=== PATIENT | male | born 1975 | race Caucasian/White ===

== ENCOUNTER 2017-07-29 15:17 | Emergency (ER) | payer MEDICAID ==
--- NOTE | 2017-07-29 17:09 | EDM.PDOC ---
ED HPI GENERAL MEDICAL PROBLEM - General Chief Complaint: Chest Pain Stated Complaint: CHEST PAIN Time Seen by Provider: 07/29/17 15:40 Source of Information: Reports: Patient, Family History Limitations: Reports: No Limitations - History of Present Illness INITIAL COMMENTS - FREE TEXT/NARRATIVE: 41-year-old male whose been having some intermittent left-sided chest discomfort off-and-on for the past several weeks, seems to be related to certain activity but also seems to be related to stress. He can make it worse by sitting up from a lying position. No shortness of breath or diaphoresis. He does have a significant family history of heart disease. Today he was cleaning and started to feel the pressure and was finally convinced that he needed to come in and be checked. No cough, fever, recent trauma, abdominal pain or chronic medical problems. Onset: Unknown/Unsure Quality: Reports: Ache, Dull, Pressure Severity: Moderate Worsens with: Reports: Other (Any type distress, also sitting forward from a supine position) Associated Symptoms: Reports: No Other Symptoms Anterior Chest Pain Score (Numeric/FACES): 3 - Related Data Allergies Allergy/AdvReac Type Severity Reaction Status Date / Time acetaminophen [From Vicodin] Allergy Rash Verified 07/29/17 15:24 codeine Allergy Rash Verified 07/29/17 15:24 hydrocodone [From Vicodin] Allergy Rash Verified 07/29/17 15:24 Home Meds: Home Meds Levothyroxine Sodium [Levoxyl] 225 mg PO DAILY 07/29/17 [History] Past Medical History HEENT History: Reports: Impaired Vision Gastrointestinal History: Reports: GERD Psychiatric History: Reports: Anxiety Endocrine/Metabolic History: Reports: Hypothyroidism - Infectious Disease History Infectious Disease History: Reports: Chicken Pox - Past Surgical History GI Surgical History: Reports: Appendectomy Musculoskeletal Surgical History: Reports: Arthroscopic Procedure, Shoulder Surgery Social & Family History - Tobacco Use Smoking Status *Q: Current Some Day Smoker Years of Tobacco use: 20 Packs/Tins Daily: 0.2 Used Tobacco, but Quit: No Second Hand Smoke Exposure: Yes - Caffeine Use Caffeine Use: Reports: Energy Drinks - Alcohol Use Days Per Week of Alcohol Use: 2 Number of Drinks Per Day: 2 Total Drinks Per Week: 4 - Recreational Drug Use Recreational Drug Use: No ED ROS GENERAL - Review of Systems Review Of Systems: See Below Constitutional: Denies: Fever, Chills Respiratory: Denies: Shortness of Breath Cardiovascular: Reports: Chest Pain. Denies: Palpitations GI/Abdominal: Denies: Abdominal Pain, Nausea, Vomiting Skin: Reports: No Symptoms Neurological: Reports: No Symptoms Psychiatric: Reports: No Symptoms ED EXAM, GENERAL - Physical Exam Exam: See Below Exam Limited By: No Limitations General Appearance: Alert, No Apparent Distress Head: Atraumatic Neck: Normal Inspection Respiratory/Chest: No Respiratory Distress, Lungs Clear. No: Chest Non-Tender ( I was able to produce some left anterior chest discomfort and reproduce it with forcing him to sit against resistance) Cardiovascular: Regular Rate, Rhythm. No: Bradycardia, Tachycardia, Extra Beats GI/Abdominal: Soft, Non-Tender Extremities: Normal Inspection. No: Pedal Edema Neurological: Alert, Oriented, Sensory/Motor Deficit Psychiatric: Normal Mood Skin Exam: Warm, Dry EKG INTERPRETATION Rhythm: NSR Course - Vital Signs Last Recorded V/S: Last Vital Signs Temp 97.3 F 07/29/17 15:36 Pulse 86 07/29/17 17:15 Resp 13 07/29/17 17:15 BP 132/90 07/29/17 17:15 Pulse Ox 95 07/29/17 17:15 - Orders/Labs/Meds Orders: Active Orders 24 hr Category Date Time Status EKG Documentation Completion [RC] ASDIRECTED Care 07/29/17 15:56 Active Chest 2V [CR] Routine Exams 07/29/17 15:56 Taken EKG 12 Lead [EK] Routine Ther 07/29/17 15:56 Ordered Labs: Laboratory Tests 07/29/17 07/29/17 Range/Units 16:11 16:11 WBC 9.2 (4.5-11.0) K/uL RBC 5.31 (4.30-5.90) M/uL Hgb 15.8 H (12.0-15.0) g/dL Hct 45.5 (40.0-54.0) % MCV 86 (80-98) fL MCH 30 (27-31) pg MCHC 35 (32-36) % Plt Count 383 (150-400) K/uL Neut % (Auto) 59 (36-66) % Lymph % (Auto) 32 (24-44) % Traverse % (Auto) 7 H (2-6) % Eos % (Auto) 2 (2-4) % Baso % (Auto) 0 (0-1) % Sodium 142 (140-148) mmol/L Potassium 4.1 (3.6-5.2) mmol/L Chloride 105 (100-108) mmol/L Carbon Dioxide 24 (21-32) mmol/L Anion Gap 12.7 (5.0-14.0) mmol/L BUN 17 (7-18) mg/dL Creatinine 1.1 (0.8-1.3) mg/dL Est Cr Clr Drug Dosing 93.17 mL/min Estimated GFR (MDRD) > 60 (>60) Glucose 90 (74-106) mg/dL Calcium 9.2 (8.5-10.1) mg/dL Troponin I < 0.017 (0.000-0.056) ng/mL - Re-Assessments/Exams Free Text/Narrative Re-Assessment/Exam: 07/29/17 17:07 EKG was done which was normal. Two-view chest x-ray was normal. CBC, BMP and troponin were all reassuring, normal. I do think with this patient's family history a stress test is reasonable, but no admission or acute treatment is needed at this time. I felt he should reestablish his care with his primary physician, and we made an appointment to see Juventino Yates tomorrow at 1:00 so he can discuss future studies or to stress testing. He'll return to the emergency room if worsening. 07/29/17 17:09 Departure - Departure Time of Disposition: 17:30 Disposition: Home, Self-Care 01 Condition: Good Clinical Impression: Atypical chest pain - Discharge Information Instructions: Nonspecific Chest Pain, [id number] Referrals: PCP,None [Primary Care Provider] - Forms: ED Department Discharge Care Plan Goals: Activity as tolerated, return if chest pain recurs and is persistent, especially if accompanied by shortness of breath and radiation to the arm or neck. See your primary provider tomorrow at 1:00 as scheduled. - My Orders Last 24 Hours: My Active Orders 07/29/17 15:56 EKG Documentation Completion [RC] ASDIRECTED Chest 2V [CR] Routine EKG 12 Lead [EK] Routine - Assessment/Plan Last 24 Hours: My Active Orders 07/29/17 15:56 EKG Documentation Completion [RC] ASDIRECTED Chest 2V [CR] Routine EKG 12 Lead [EK] Routine
--- NOTE | 2017-07-30 09:19 | CR ---
Chest 2V HISTORY: Dyspnea. COMPARISON: None FINDINGS: Cardiac size and pulmonary vessels normal. There are no infiltrates or effusions. No pneumo thorax. The osseous structures appear normal. IMPRESSION: No acute pulmonary disease.
== END 2017-07-29 17:30 | disposition home or self-care (01) ==
LOC: JP.ED 15:17
DX: R07.89 Other chest pain (principal); E03.9 Hypothyroidism, unspecified; F17.210 Nicotine dependence, cigarettes, uncomplicated; Z88.5 Allergy status to narcotic agent; Z88.6 Allergy status to analgesic agent
CPT/HCPCS: 36415; 71046; 71046-26; 80048; 84484; 85025; 93005; 93010; 99284; 99285-25

== ENCOUNTER 2019-03-07 10:23 | Day surgery (SDC) | payer MEDICAID ==
[2019-03-07] MEDS ORDERED: Lactated Ringers 500 ML IV SCH (10:45)
[2019-03-07] MEDS ORDERED: Lidocaine 2% 20 ML MDV ONE (10:54)
[2019-03-07] MEDS ORDERED: Bupivacaine 0.5% 50 ML MDV ONE (10:54)
[2019-03-07] MEDS ORDERED: Bacitracin Oint 1 GM U/D Packet ONE (10:54)
[2019-03-07] MEDS ORDERED: Propofol 200 MG/20 ML SDV ONE ×2 (10:56→13:18)
[2019-03-07] MEDS ORDERED: fentaNYL 100 MCG/2 ML SDV ONE (10:56)
[2019-03-07] MEDS ORDERED: Midazolam 1 MG/ML 2 ML SDV ONE (10:57)
[2019-03-07] MEDS ORDERED: Lactated Ringers 1,000 ML IV ONE (11:18)
[2019-03-07] MEDS ORDERED: ceFAZolin 1 GM in Premix Bag 1 BAG IV ONE (11:45)
--- NOTE | 2019-03-07 15:06 | OR ---
DATE OF PROCEDURE: 03/07/2019 MICROGRAPHICS SERVICES SUPERVISOR: None. PREOPERATIVE DIAGNOSIS: Hallux rigidus, left foot. POSTOPERATIVE DIAGNOSIS: Hallux rigidus, left foot. PROCEDURE: Arthrodesis of the left first metatarsophalangeal joint. ANESTHESIA: Local with IV sedation. HEMOSTASIS: Obtained with an ankle tourniquet on the left ankle at 250 mmHg. ESTIMATED BLOOD LOSS: 5 mL. MATERIALS: One Arthrex locking plate was used with 1 Arthrex 3.0 mm cannulated screw, 1 Arthrex 3.0 mm cortical screw, and 4 Arthrex 3.0 mm locking screws were used. INJECTABLES: 17 mL of Marcaine 0.5% plain were injected at the beginning of the procedure and 10 mL of Marcaine 0.5% plain were injected at the end of the procedure. PATHOLOGY: None. CONDITION: Stable. INDICATIONS: Painful hallux rigidus, left foot, that was unresponsive to conservative measures. PROCEDURE IN DETAIL: The patient was brought into the operating room and placed on the operating table in supine position. Following IV sedation, anesthesia was obtained with 17 mL of Marcaine 0.5% plain. The left foot was anesthetized with 17 mL of Marcaine 0.5% plain. Then, the left foot was scrubbed, prepped, and draped in the usual aseptic manner and raised to 60 degrees for hemostasis and exsanguinated using an Esmarch bandage. The tourniquet was inflated. Foot was lowered to the table. Skin incision was made on the dorsomedial aspect of left 1st metatarsophalangeal joint. Incisions were deepened through subcutaneous tissues with care taken to identify and retract all vital neurovascular structures. Following subcutaneous dissection, a T-type incision was made into the 1st metatarsophalangeal joint. Capsule was carefully dissected off the 1st metatarsal head and the base of the proximal phalanx. Sagittal saw was used to remove the bone spurs from the dorsomedial aspect of the 1st metatarsal head. Then, the private tutor was used to debride the head of the 1st metatarsal and remove the rest of the bone spurs from the dorsal and medial aspects and also plantar aspect of the 1st metatarsal head. Then, the bone fragments were removed with a rongeur. The rongeur was also used to remove hypertrophic bone spurs from the base of the proximal phalanx. Then, a K-wire was inserted into the 1st metatarsal head and the 22-mm reamer was used to ream the 1st metatarsal head and then the K-wire was removed and placed in the proximal phalanx and the 20-mm reamer was used in the proximal phalanx. Then, the 0.62 K-wire was used to fenestrate the 1st metatarsal head and the base of the proximal phalanx. The fusion site of the 1st metatarsophalangeal joint on the left foot was then reduced anatomically and provisionally fixated with pinballs and the plate. A small stab incision was made on the medial aspect of the left great toe, on the medial side of the proximal phalanx. The K-wire from the 3.0 mm cannulated screw set was placed across the arthrodesis site and then the position of the toe was confirmed both visually and fluoroscopically and found to be anatomic. So, then the hole around the K-wire was drilled and then the screw was placed. However, before the screw captured, we removed the distal pinball to facilitate compression at the arthrodesis site. The compression screw was then placed. Then, the 2 distal locking screws were placed in the proximal phalanx. Then, the eccentrically-loaded screw was placed in the eccentric drill hole. It was a cortical screw. Then, the remaining 2 locking screws were placed. The position of the 1st metatarsal was checked and found to be anatomic and then it was confirmed fluoroscopically and found to be anatomic. Then, the incision was flushed out with copious amounts of sterile saline. The joint capsule was closed with 3-0 Vicryl, the subcutaneous layer was closed with 3-0 Vicryl, and then skin was closed with 4-0 nylon in a horizontal mattress configuration with 1 simple stitch at the end of the incision and 1 simple stitch on the medial side of the foot, where the compression screw had been placed. Postoperative injection of 10 mL of Marcaine 0.5% plain was injected and then the left foot was dressed with Xeroform, 4x4s, Kerlix, and Coban. The patient was returned to the recovery room with vital signs stable and vascular status intact to both feet. The patient was given prescriptions for Toradol 10 mg q.6h x4 days, dispensed #24; also with tramadol 50 mg, one tab q.6h x10 days, dispensed #40; and also Vistaril 25 mg, one tab p.o. q.8h, dispensed #40. The patient was given instructions to rest, ice, and elevate the left foot, maintain strict nonweightbearing on the left foot and to go to the emergency room immediately if he has any nausea, vomiting, fever, chills, chest pain, calf pain, or difficulty breathing. The patient was agreeable. The patient is to ambulate with knee scooter and was told to keep dressings clean, dry, and intact. Cuate Davis DPM /[id number]
== END 2019-03-07 15:26 | disposition home or self-care (01) ==
LOC: JP.SDS 10:23
PROVIDERS: ATTEND Podiatrist Foot & Ankle Surgery
DX: M20.22 Hallux rigidus, left foot (principal); K21.9 Gastro-esophageal reflux disease without esophagitis; E78.5 Hyperlipidemia, unspecified; E03.9 Hypothyroidism, unspecified; F17.210 Nicotine dependence, cigarettes, uncomplicated; R73.9 Hyperglycemia, unspecified; Z88.5 Allergy status to narcotic agent; Z79.899 Other long term (current) drug therapy
CPT/HCPCS: 28291; 76000; C1713; C1776; J0690; J2001; J2250; J2704; J3010; J3490; J7120

== ENCOUNTER 2020-03-27 06:41 | Day surgery (SDC) | payer MEDICAID ==
[2020-03-27] MEDS ORDERED: Propofol 200 MG/20 ML SDV ONE (06:57)
[2020-03-27] MEDS ORDERED: Midazolam 1 MG/ML 2 ML SDV ONE (06:57)
[2020-03-27] MEDS ORDERED: fentaNYL 100 MCG/2 ML SDV ONE (06:57)
[2020-03-27] MEDS ORDERED: Dextrose 5%-Lactated Ringers 1,000 ML IV SCH (07:30)
[2020-03-27] MEDS ORDERED: Glycopyrrolate 0.2 MG/ML 2 ML SDV IVPUSH ONE (07:45)
--- NOTE | 2020-04-04 15:26 | OR ---
DATE OF PROCEDURE: 03/27/2020 SURGEON: Abdoulaye Car MD PREOPERATIVE DIAGNOSIS: Gastroesophageal reflux disease refractory to medical management. POSTOPERATIVE DIAGNOSES: 1. Gastroesophageal reflux disease refractory to medical management. 2. Patchy antral gastritis. OPERATIVE PROCEDURE: Esophagogastroduodenoscopy with: 1. Biopsies of esophagogastric junction for histologic evaluation. 2. Biopsies of antrum for CLOtest. ANESTHESIA: IV sedation. INDICATION FOR PROCEDURE: A 44-year-old male presenting with gastroesophageal reflux disease that has become refractory to medical management. He has ongoing heartburn and some bilious regurgitation despite proton pump inhibitor use. Plan is to proceed with upper GI endoscopy with biopsies as indicated. Potential risks including bleeding and perforation were discussed, and the patient wishes to proceed. DETAILS OF PROCEDURE: The patient was taken to the operating room and placed in a left lateral decubitus position. IV sedation was administered, after which the upper GI endoscope was passed orally through the length of the esophagus into the stomach with retroflexion view of the fundus, and thereafter through the pyloric channel and into the junction of the 3rd and 4th portions of the duodenum. Findings included some redness in the hypopharynx and larynx. The upper esophageal sphincter and esophageal body were unremarkable. The patient did have small hiatal hernia, but completely wide open esophagogastric junction with some active redness and friability of the distal esophageal mucosa. There was slightly upward extension of the gastroesophageal junction mucosal line consistent with possible [place] esophagus. Otherwise, there was no plaquing or stricturing or suggestion of neoplastic changes. Within the stomach, there was some patchy redness in the antrum. Otherwise, pyloric channel and visualized portion of the duodenum were unremarkable. At this point, biopsies were obtained from the antrum and sent for CLOtest for H pylori. Multiple biopsies were then obtained from esophagogastric junction and sent for histologic evaluation. Minimal bleeding from the biopsy sites was seen and the procedure was then concluded. The patient was taken to the recovery room in satisfactory condition. The plan will be to see the patient tomorrow Clinic to discuss this issue as well as his which he at this point desires to have removed for definitive diagnosis. Abdoulaye Car MD /[id number]
== END 2020-03-27 09:03 | disposition home or self-care (01) ==
LOC: JP.SDS 06:41
PROVIDERS: ATTEND Surgery
DX: K29.00 Acute gastritis without bleeding (principal); K29.50 Unspecified chronic gastritis without bleeding; K20.9 Esophagitis, unspecified; K31.89 Other diseases of stomach and duodenum; F17.200 Nicotine dependence, unspecified, uncomplicated
CPT/HCPCS: 43239; 87081; 88305; J2250; J2704; J3010; J3490; J7121

== ENCOUNTER 2020-04-17 08:51 | Inpatient (IN) | payer MEDICAID ==
[2020-04-17] MEDS ORDERED: Acetaminophen 500 MG Tab PO ONE (09:00)
[2020-04-17] MEDS ORDERED: Dextrose 5%-Lactated Ringers 1,000 ML IV SCH (09:30)
[2020-04-17] MEDS ORDERED: fentaNYL 250 MCG/5 ML SDV ONE (10:20)
[2020-04-17] MEDS ORDERED: Rocuronium 50 MG/5 ML Vial ONE (10:21)
[2020-04-17] MEDS ORDERED: Succinylcholine 200 MG/10 ML MDV ONE (10:21)
[2020-04-17] MEDS ORDERED: ceFAZolin 2 GM in Premix Bag 1 BAG IV ONE (10:21)
[2020-04-17] MEDS ORDERED: Dexamethasone 4 MG/ML SDV ONE (10:21)
[2020-04-17] MEDS ORDERED: Glycopyrrolate 0.2 MG/ML 5 ML MDV ONE (10:21)
[2020-04-17] MEDS ORDERED: Neostigmine Methylsulfate 1 MG/ML 5 ML Syringe ONE (10:21)
[2020-04-17] MEDS ORDERED: Ondansetron 4 MG/2 ML SDV ONE (10:21)
[2020-04-17] MEDS ORDERED: Propofol 200 MG/20 ML SDV ONE (10:21)
[2020-04-17] MEDS ORDERED: Ketamine 50 MG in Sodium Chloride 0.9% 49.5 ML IV SCH (11:30)
[2020-04-17] MEDS ORDERED: Ketamine 500 MG/5 ML MDV IV SCH (11:30)
[2020-04-17] MEDS ORDERED: fentaNYL 100 MCG/2 ML SDV ONE (11:36)
[2020-04-17] MEDS ORDERED: HYDROmorphone 2 MG Tab PO PRN (13:12)
[2020-04-17] MEDS ORDERED: Loratadine 10 MG Tab PO PRN (13:16)
[2020-04-17] MEDS ORDERED: Pseudoephedrine 30 MG Tab PO PRN (13:16)
[2020-04-17] MEDS ORDERED: HYDROmorphone 0.5 MG/0.5 ML Syringe IVPUSH PRN (14:00)
[2020-04-17] MEDS: Metoclopramide 10 MG/2 ML SDV IVPUSH SCH ×2 (14:05→19:26)
[2020-04-17] MEDS: Pantoprazole 40 MG Vial IVPUSH SCH (14:06)
[2020-04-17] MEDS: Dextrose 5%-Lactated Ringers 1,000 ML IV SCH ×2 (14:11→21:14)
[2020-04-17] MEDS: Acetaminophen 500 MG Tab PO SCH ×2 (15:47→21:10)
[2020-04-17] MEDS: ceFAZolin 2 GM in Premix Bag 1 BAG IV SCH (18:02)
[2020-04-17] MEDS: Rosuvastatin 10 MG Tab PO SCH (21:10)
[2020-04-18] MEDS: ceFAZolin 2 GM in Premix Bag 1 BAG IV SCH ×2 (01:15→09:36)
[2020-04-18] MEDS: Metoclopramide 10 MG/2 ML SDV IVPUSH SCH ×4 (01:16→19:54)
[2020-04-18] MEDS: Ondansetron 4 MG/2 ML SDV IVPUSH PRN ×2 (02:01→09:15)
[2020-04-18] MEDS: Acetaminophen 500 MG Tab PO SCH ×4 (04:21→23:02)
[2020-04-18] MEDS: Dextrose 5%-Lactated Ringers 1,000 ML IV SCH ×2 (04:22→11:35)
[2020-04-18] MEDS ORDERED: Ondansetron 4 MG Tab.DIS PO PRN (06:50)
--- NOTE | 2020-04-18 08:39 | PN ---
DATE OF SERVICE: 04/18/2020 SUBJECTIVE: Sami is postop day 1. Pain is controlled with Tylenol. He has had some episodes of nausea treated with Zofran. Vital signs have been stable. Oral intake 540. Urine output 1100. REVIEW OF SYSTEMS: Remainder of review of systems negative for any pertinent positives and negatives. OBJECTIVE: GENERAL: Sami Daugherty is a 44-year-old male. He is resting comfortably in bed. VITAL SIGNS: TPR at 0400: 97.7, 107, 18. Blood pressure 146/90. HEENT: Negative. NECK: Supple. HEART: Regular rate and rhythm. LUNGS: Clear. ABDOMEN: Dressings dry and intact. Abdominal binder is on. EXTREMITIES: Without peripheral edema. ASSESSMENT: Laparoscopic Eduardo fundoplication with repair of paraesophageal hernia with mesh and excision of mediastinal lipoma. POSTOPERATIVE DIAGNOSES: 1. 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 2. Mediastinal lipoma. Date of surgery: 04/17/2020. Surgeon: Abdoulaye Car MD. PLAN: 1. Dressing off, may shower. 2. Consult dietitian. 3. Full liquid diet. 4. Decrease IV to 100 mL per hour. 5. Zofran ODT 4 mg every 4 hours p.r.n. nausea. Mary Treadwell PA-C /[id number]
[2020-04-18] MEDS ORDERED: valACYclovir 1,000 MG Tab PO SCH (09:00)
[2020-04-18] MEDS: Pantoprazole 40 MG Vial IVPUSH SCH (13:29)
[2020-04-18] MEDS: HYDROmorphone 1 MG/ML Syringe IV PRN (19:53)
[2020-04-18] MEDS: Rosuvastatin 10 MG Tab PO SCH (20:52)
[2020-04-19] MEDS: HYDROmorphone 1 MG/ML Syringe IV PRN (02:28)
[2020-04-19] MEDS: Dextrose 5%-Lactated Ringers 1,000 ML IV SCH (02:33)
[2020-04-19] MEDS: Metoclopramide 10 MG/2 ML SDV IVPUSH SCH ×2 (02:42→07:09)
[2020-04-19] MEDS: Acetaminophen 500 MG Tab PO SCH (04:59)
--- NOTE | 2020-04-19 08:45 | DISCH ---
ADMISSION DIAGNOSES: Gastroesophageal reflux disease refractory to medical management, hiatal hernia, hypothyroidism, dyslipidemia, hyperglycemia, right lung nodule. DISCHARGE DIAGNOSES: Laparoscopic Eduardo fundoplication with repair of paraesophageal hernia with mesh and excision of mediastinal lipoma. POSTOPERATIVE DIAGNOSES: 1. 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 2. Mediastinal lipoma. 3. Date of surgery: 04/17/2020. Surgeon: Abdoulaye Car MD. HISTORY: Sami Daugherty is a 44-year-old male with history of hiatal hernia and gastroesophageal reflux disease refractory to medical management. After preoperative evaluation and discussion of possible risks and possible complications, he wished to proceed with surgical procedure. HOSPITAL COURSE: Sami had his surgery on 04/17/2020. He had no operative complications. On postoperative day #1, he was started on a full liquid diet. He received dietary instruction. He did have episodes of nausea and dry heaving he states from taking Dilaudid on an empty stomach. His vital signs remained stable. His oral intake was 400 that was recorded. Urine output not recorded. He states he voided independently. Denies any difficulties swallowing. Sami was stable to be discharged to home on 04/19/2020. PHYSICAL EXAMINATION: GENERAL: Sami is a 44-year-old male. VITAL SIGNS: Height is 5 feet 11 inches, weight is 206 pounds. TPR at 07:08 is 99.1; 115; 16; blood pressure 146/76. HEENT: Negative. NECK: Supple. HEART: Regular rate and rhythm. LUNGS: Clear. ABDOMEN: Sutures intact. Incision is healing well. Abdominal binder is on. EXTREMITIES: Without peripheral edema. DISPOSITION: Discharged to home. CONDITION: Stable and improving. FOLLOWUP APPOINTMENT: Abdoulaye Car MD, at [facility] on 05/02/2020 at 8:30 a.m. NEW PRESCRIPTION: 1. Celebrex 200 mg b.i.d., #28. 2. Dilaudid 2 mg q.6 hours p.r.n. pain, #28, take with food. 3. Tylenol Extra Strength 1000 mg oral q.6 hours, #40. 4. Zofran ODT 4 mg every 4 hours p.r.n. nausea. 5. To resume home medications and he may take them intact. a. Levothyroxine 225 mcg oral daily. b. AllerClear-D 24-Hour ER 1 tablet daily p.r.n. allergies. c. Omeprazole 20 mg oral daily for heartburn. d. Crestor 20 mg oral daily. e. Valtrex 500 mg oral daily. DIET: Full liquid diet for 2 weeks. Drink 8 to 10 glasses of water a day. ACTIVITY: No lifting over 10 pounds for 2 weeks. Other activity: Walk at least 6 times inside your house. Driving: Do not drive for 1 week. Shower/bathing: May shower. DISCHARGE INSTRUCTIONS: Notify provider if any fever, increased pain, swelling, redness, drainage, nausea, or vomiting. Wound incision care: Keep site clean and dry. Wear abdominal binder for 2 weeks and then as tolerated. SPECIAL INSTRUCTION: Use incentive spirometer 10 times every hour while awake for 1 week.
--- NOTE | 2020-04-23 16:38 | OR ---
DATE OF PROCEDURE: 04/17/2020 SURGEON: Abdoulaye Car MD PREOPERATIVE DIAGNOSIS: Gastroesophageal reflux disease refractory to medical management. POSTOPERATIVE DIAGNOSES: 1. Gastroesophageal reflux disease refractory to medical management associated with a large paraesophageal diaphragmatic hernia. 2. Mediastinal lipoma. OPERATIVE PROCEDURE: 1. Laparoscopic Eduardo fundoplication with repair of paraesophageal diaphragmatic hernia with mesh (11316). 2. Excision of mediastinal lipoma (92361). ANESTHESIA: General. EBD TEACHER: Mary Treadwell PA-C. INDICATION FOR PROCEDURE: This is a 44-year-old male presenting with progressive worsening gastroesophageal disease that has been refractory to medical management. After preop evaluation and discussion, he wished to proceed with a Eduardo fundoplication. Potential risks of the procedure including bleeding, infection, injury to the viscera in the area, problems with fundoplication such as dysphagia, gas-bloat syndrome, disorders of gastric emptying rate, as well as incomplete relief of reflux symptoms were reviewed, and the patient wishes to proceed. DETAILS OF PROCEDURE: The patient was taken to the operating room, and after general endotracheal anesthesia was induced, he was placed in a lithotomy position and the abdomen prepped and draped. At 15 cm inferior and 5 cm left of the xiphoid process, a transverse incision was made and peritoneal cavity entered under direct vision with an Optiview trocar, inflated to 15 mmHg pressure with CO2. Laparoscope was then reinserted. No underlying trocar insertion site injuries were seen. Following this, 4 additional trocars were placed across the upper and mid abdomen. Bilateral transverse abdominis plane blocks were then placed. The liver was retracted anteriorly. The patient was noted to have a fairly large paraesophageal diaphragmatic hernia with prolapse of some omentum, as well as the gastric fundus and perigastric fat, in a plane anterior to the course of the esophagus. The hernia was reduced at this point and the peritoneum overlying it divided and reflected downward. The peritoneum between the distal esophagus and right cande was then divided as well with Harmonic scalpel and this allowed gradual dissection of the esophagus, and a retroesophageal window was constructed. The soft tissue attachments of the esophagus were then gradually dissected free with Harmonic scalpel, such that there was roughly 5 cm intraabdominal esophageal length at that point. During the course of the dissection, a mediastinal lipoma was encountered, and this was excised so as to facilitate more adequate crural repair. The crural repair was accomplished with a series of 0 Ethibond sutures reinforced with PTFE pledgets. The size of the crural defect appeared to require mesh augmentation. A Phasix ST mesh was selected and cut in a small horseshoe-type configuration, such that it would lie over the crural repair and then slightly over the crura on each side, where it was tacked with some titanium tacking screws. The stomach was then freed up with division of the omentum away from the greater curvature of the stomach, beginning on the mid greater curvature. This was continued with the Harmonic Scalpel up to and through the short gastric vessels and highest and posterior short gastric vessels. This resulted in a nicely mobile fundus. The latter was then retrieved through the retroesophageal window. The railroad surveyor then placed a wire orally through the length of the esophagus into the stomach. Over this, a 54-Lao Savary dilator was positioned. A 2 cm 3-stitch fundoplication was constructed with 0 Ethibond sutures reinforced with PTFE pledgets. Each of these sutures included bites of the underlying esophagus. The fundoplication was then tacked up to the diaphragm on each side with the same stitch/ pledget combination to facilitate maintenance of the fundoplication over the level of the esophagus. At this point, the dilator and wire were removed, and the fundoplication was inspected and found to be satisfactorily floppy. At this point, the trocars were removed and the peritoneal cavity deflated. Incisions were closed with 4-0 Vicryl skin stitch, and the patient was taken to the recovery room in satisfactory condition. Physician child and youth program assistant, Mary Treadwell, played an essential role in assisting in this case, helping to position the patient, retract structures as needed, as well as suturing and cutting sutures when indicated. Her presence improved patient safety and decreased operative time. Abdoulaye Car MD /[id number]
== END 2020-04-19 09:30 | disposition home or self-care (01) | DRG 328 ==
LOC: JP.SDSSCHI 08:51 → JP.SDS 08:51 → JP.MS 12:30 → EDSTATUS 14:45
PROVIDERS: ADMIT Surgery; ATTEND Surgery
PROC: 0DV44ZZ Restriction of Esophagogastric Junction, Percutaneous Endoscopic Approach (ICD-10-PCS; principal; 2020-04-17)
PROC: 0BUT4JZ Supplement Diaphragm with Synthetic Substitute, Percutaneous Endoscopic Approach (ICD-10-PCS; 2020-04-17)
PROC: 0JB63ZZ Excision of Chest Subcutaneous Tissue and Fascia, Percutaneous Approach (ICD-10-PCS; 2020-04-17)
DX: K21.9 Gastro-esophageal reflux disease without esophagitis (principal); E03.9 Hypothyroidism, unspecified; K44.9 Diaphragmatic hernia without obstruction or gangrene; E78.5 Hyperlipidemia, unspecified; R91.1 Solitary pulmonary nodule; D17.1 Benign lipomatous neoplasm of skin and subcutaneous tissue of trunk; R73.9 Hyperglycemia, unspecified; Z79.899 Other long term (current) drug therapy; Z90.49 Acquired absence of other specified parts of digestive tract; Z88.8 Allergy status to other drugs, medicaments and biological substances
CPT/HCPCS: 36415; 80053; 83735; 84100; 84443; 85027; 88304; 94762; A9270-GY; C1713; C1781; C9113; J0171; J0330; J0690; J1100; J1170; J2405; J2704; J2710; J2765; J2795; J3010; J3490; J7050; J7121

== ENCOUNTER 2020-06-11 07:04 | Inpatient (IN) | payer MEDICAID ==
[~2020-06-11 07:04] MED LIST: Acetaminophen 500 MG Tab PO ONE; Albuterol 0.083% 2.5 MG/3 ML Neb Soln NEB ONE; Bupivacaine 0.5%/EPINEPHrine 1:200,000 50 ML MDV ONE
[2020-06-11] MEDS ORDERED: Ketamine 500 MG/5 ML MDV IV SCH (07:30)
[2020-06-11] MEDS ORDERED: Ketamine 50 MG in Sodium Chloride 0.9% 49.5 ML IV SCH (07:30)
[2020-06-11] MEDS ORDERED: Dexamethasone 4 MG/ML SDV ONE (08:44)
[2020-06-11] MEDS ORDERED: Glycopyrrolate 0.2 MG/ML 5 ML MDV ONE (08:44)
[2020-06-11] MEDS ORDERED: Rocuronium 50 MG/5 ML Vial ONE ×2 (08:44→11:12)
[2020-06-11] MEDS ORDERED: Succinylcholine 200 MG/10 ML MDV ONE (08:44)
[2020-06-11] MEDS ORDERED: Neostigmine Methylsulfate 1 MG/ML 5 ML Syringe ONE (08:44)
[2020-06-11] MEDS ORDERED: Ondansetron 4 MG/2 ML SDV ONE (08:44)
[2020-06-11] MEDS ORDERED: Propofol 200 MG/20 ML SDV ONE (08:44)
[2020-06-11] MEDS ORDERED: Dextrose 5%-Lactated Ringers 1,000 ML IV SCH (08:45)
[2020-06-11] MEDS ORDERED: Naloxone 0.4 MG/ML SDV IVPUSH PRN (09:00)
[2020-06-11] MEDS ORDERED: Midazolam 1 MG/ML 2 ML SDV ONE (09:03)
[2020-06-11] MEDS ORDERED: fentaNYL 100 MCG/2 ML SDV ONE ×2 (09:04→11:27)
[2020-06-11] MEDS ORDERED: Sodium Chloride 0.9% 10 ML ONE (09:04)
[2020-06-11] MEDS ORDERED: Lidocaine 1% 2 ML ONE (09:08)
[2020-06-11] MEDS ORDERED: Heparin Sodium 5,000 Units/ML Vial ONE (09:08)
[2020-06-11] MEDS ORDERED: Lidocaine 1% 20 ML MDV INJECT ONE (09:16)
[2020-06-11] MEDS ORDERED: ceFAZolin 2 GM in Premix Bag 1 BAG IV ONE (09:30)
[2020-06-11] MEDS ORDERED: Lactated Ringers 1,000 ML ONE ×2 (09:42→11:26)
[2020-06-11] MEDS ORDERED: fentaNYL 250 MCG/5 ML SDV ONE (09:54)
--- NOTE | 2020-06-11 10:20 | CT ---
HOOKWIRE LOCALIZATION RLL LUNG NODULE CLINICAL HISTORY: Lung nodule PROCEDURE: After informed consent the patient was placed on the CT table in prone position with a localization grid on the skin. Scans through the lower lung enciso show the previously described 6 mm nodule in the right lower lobe. Approach was selected and the skin was marked. Skin was then prepped and sterilely draped. 1% Xylocaine local anesthesia was instilled into the skin through the posterior soft tissues to the rib margin. 25-gauge needle was left in place while patient was rescanned to confirm needle path. A 22-gauge Kopan localization needle was then advanced under CT guidance to the rib margin. The angle was adjusted to pass through the intercostal space to the nodule. CT fluoroscopy was then used to advance the needle to the nodule. The localization wire was then advanced to 3 mm the on the needle tip and the needle was removed with wire left in place. Confirmation scan showed the tip of the wire to be within the nodule. There is minimal tenting of the posterior pleura without obvious pneumothorax or pleural fluid. Wire was secured at the skin. The patient was released to preop on a gurney. No common locations were encountered. IMPRESSION: Successful wire localization of a 6 mm right lower lobe pulmonary nodule
[2020-06-11] MEDS ORDERED: Naloxone 0.4 MG/ML SDV ONE (12:11)
[2020-06-11] MEDS ORDERED: fentaNYL 100 MCG/2 ML SDV IVPUSH ONE (12:42)
--- NOTE | 2020-06-11 13:22 | CR ---
CHEST: Portable 06/11/2020 at 12:23 PM CLINICAL HISTORY:Status postPost thoracoscopy and partial lung resection COMPARISON:CT 08/11/2019 FINDINGS: There is a right chest tube in place. There is a crescentic apical pneumothorax. This measures just over 2 cm. Left lung is clear. There is some patchy density in the right lower lobe. Impression: Status post right thoracoscopy Chest tube in place Small apical pneumothorax
[2020-06-11] MEDS: fentaNYL 2,500 MCG in Sodium Chloride 0.9% 200 ML EPIDUR SCH (14:02)
[2020-06-11] MEDS ORDERED: hydrOXYzine HCL 100 MG/2 ML SDV IM PRN (16:00)
[2020-06-11] MEDS: Acetaminophen 500 MG Tab PO SCH ×2 (16:27→21:34)
[2020-06-11] MEDS: Pantoprazole 40 MG Vial IVPUSH SCH (16:27)
[2020-06-11] MEDS: ceFAZolin 2 GM in Premix Bag 1 BAG IV SCH (18:05)
[2020-06-11] MEDS: Dextrose 5%-Lactated Ringers 1,000 ML IV SCH (22:08)
[2020-06-12] MEDS: ceFAZolin 2 GM in Premix Bag 1 BAG IV SCH ×3 (01:27→17:34)
[2020-06-12] MEDS: Ondansetron 4 MG/2 ML SDV IVPUSH PRN ×2 (04:29→08:39)
[2020-06-12] MEDS: Acetaminophen 500 MG Tab PO SCH ×4 (04:29→22:29)
[2020-06-12] MEDS: Dextrose 5%-Lactated Ringers 1,000 ML IV SCH (05:22)
[2020-06-12] MEDS: Magnesium Sulfate/Water 2 GM/50 ML BAG IV SCH ×3 (08:37→20:09)
[2020-06-12] MEDS: Dextrose 5%-Lactated Ringers 1,000 ML with Naloxone 0.4 MG IV SCH ×4 (08:48→20:08)
[2020-06-12] MEDS ORDERED: Naloxone 0.4 MG/ML SDV IV PRN (09:00)
[2020-06-12] MEDS ORDERED: diphenhydrAMINE 50 MG/ML SDV IVPUSH PRN (09:00)
--- NOTE | 2020-06-12 09:15 | CR ---
CHEST: Portable 1124 at 0439 AM CLINICAL HISTORY:Chest tube COMPARISON:06/11/2020 FINDINGS: There is a persistent small right apical pneumothorax similar to prior study. Right chest tube remains in place. There is some patchy density in the right infrahilar region. Left lung remains clear. IMPRESSION: Persistent small right apical pneumothorax Right chest tube remains in place Persistent the right infrahilar density. This may represent some subsegmental atelectasis. Some element of previous pulmonary hemorrhage is not excluded
[2020-06-12] MEDS: Docusate Sodium 100 MG Cap PO SCH ×2 (10:39→22:29)
[2020-06-12] MEDS: valACYclovir 1,000 MG Tab PO SCH (10:39)
[2020-06-12] MEDS: Rosuvastatin 10 MG Tab PO SCH ×3 (10:40→16:17)
[2020-06-12] MEDS: fentaNYL 2,500 MCG in Sodium Chloride 0.9% 200 ML EPIDUR SCH (10:50)
[2020-06-12] MEDS ORDERED: Lactated Ringers 500 ML IV ONE (14:00)
[2020-06-12] MEDS: Pantoprazole 40 MG Vial IVPUSH SCH (16:17)
[2020-06-13] MEDS: ceFAZolin 2 GM in Premix Bag 1 BAG IV SCH ×2 (02:14→09:38)
[2020-06-13] MEDS: Magnesium Sulfate/Water 2 GM/50 ML BAG IV SCH ×4 (02:14→19:49)
[2020-06-13] MEDS: Acetaminophen 500 MG Tab PO SCH ×4 (03:08→22:57)
[2020-06-13] MEDS: Dextrose 5%-Lactated Ringers 1,000 ML with Naloxone 0.4 MG IV SCH ×2 (06:42)
[2020-06-13] MEDS ORDERED: Naloxone 0.4 MG/ML SDV IV PRN (09:00)
[2020-06-13] MEDS: valACYclovir 1,000 MG Tab PO SCH (09:36)
[2020-06-13] MEDS: Ibuprofen 600 MG Tab PO SCH ×3 (09:37→21:31)
[2020-06-13] MEDS: Docusate Sodium 100 MG Cap PO SCH ×2 (09:37→21:31)
[2020-06-13] MEDS: Levothyroxine 100 MCG Tab PO SCH (09:37)
[2020-06-13] MEDS: Bisacodyl 5 MG Tab PO SCH ×2 (09:38→21:31)
--- NOTE | 2020-06-13 10:00 | CR ---
CHEST: Portable 06/13/2020 at 5:25 AM CLINICAL HISTORY:Status post partial right pneumonectomy COMPARISON:06/12/2020 FINDINGS: There is a persistent paucity of lung markings in the right apex. A pleural line is not definitively identified but the small residual pneumothorax is suspected. Right chest tube remains in place. IMPRESSION: Probable small residual pneumothorax
[2020-06-13] MEDS: Ondansetron 4 MG/2 ML SDV IVPUSH PRN ×2 (10:28→15:21)
[2020-06-13] MEDS ORDERED: Dextrose 5%-Lactated Ringers 1,000 ML IV SCH (11:00)
[2020-06-13] MEDS ORDERED: HYDROmorphone/Normal Saline 15 MG/30 ML PCA IV PRN (11:00)
--- NOTE | 2020-06-13 14:03 | PN ---
DATE OF SERVICE: 06/12/2020 The patient is status post a right superior segmentectomy of the lower lobe. 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 Overnight, the patient has done well. A little bit of nausea. Pain control with epidural appears to be fairly good. We will keep him on just some sips of clear liquids for today and the epidural in for another day or 2 and 175 mL. The chest x-ray looks good, and no air leaks were noted. He will be transferred to 2nd floor to get him away from the possible COVID exposure associated with ICU. Labs showed no significant problems. His magnesium is slightly low at 1.7. We will supplement that over the next 48 hours. Abdoulaye Car MD /[id number]
--- NOTE | 2020-06-13 15:03 | PN ---
DATE OF SERVICE: 06/13/2020 The patient has been afebrile with fairly stable vital signs and good urine output. 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 He tolerated the Dilaudid last time with Eduardo fundoplication. We will start some diet today. Alicia catheter will come out, and he hopefully likely will be moved up to the second floor further away from any COVID patients. Testing at this point has been quite mobile, maybe get that out tomorrow, and chest x-ray, otherwise, looks good. No air leaks are noted. Pathology still pending. Abdoulaye Car MD /[id number]
[2020-06-13] MEDS ORDERED: Pantoprazole 40 MG Delayed-Release Granules 1 Packet PO SCH (16:30)
[2020-06-13] MEDS ORDERED: Sodium Chloride 0.9% 1,000 ML IV SCH (16:45)
[2020-06-13] MEDS: Rosuvastatin 10 MG Tab PO SCH (16:53)
[2020-06-13] MEDS: Pantoprazole 40 MG Tab.CR PO SCH (16:53)
[2020-06-14] MEDS: Acetaminophen 500 MG Tab PO SCH ×4 (00:21→17:48)
[2020-06-14] MEDS: Magnesium Sulfate/Water 2 GM/50 ML BAG IV SCH (03:10)
[2020-06-14] MEDS: Ibuprofen 600 MG Tab PO SCH ×4 (03:21→22:52)
[2020-06-14] MEDS: Levothyroxine 100 MCG Tab PO SCH (08:53)
[2020-06-14] MEDS: valACYclovir 1,000 MG Tab PO SCH (08:53)
[2020-06-14] MEDS: Docusate Sodium 100 MG Cap PO SCH ×2 (08:53→20:00)
[2020-06-14] MEDS: Bisacodyl 5 MG Tab PO SCH ×2 (08:53→20:00)
--- NOTE | 2020-06-14 10:30 | CR ---
CHEST: Portable 06/14/2020 at 5:08 AM CLINICAL HISTORY:Previous right thoracoscopy COMPARISON:06/13/2020 FINDINGS: Right chest tube remains in place. No definite pneumothorax is identified on current exam. Heart and pulmonary vessel 30 are normal. There is some persistent patchy density in the right infrahilar region. IMPRESSION: Essential resolution of right pneumothorax Right chest tube remains in place Persistent right infrahilar airspace disease similar to prior study .
[2020-06-14] MEDS: HYDROmorphone 2 MG Tab PO PRN ×3 (10:36→19:46)
[2020-06-14] MEDS: Pantoprazole 40 MG Tab.CR PO SCH (16:00)
[2020-06-14] MEDS: Rosuvastatin 10 MG Tab PO SCH (17:48)
[2020-06-15] MEDS: Acetaminophen 500 MG Tab PO SCH ×4 (01:09→17:41)
[2020-06-15] MEDS: Ibuprofen 600 MG Tab PO SCH ×4 (03:35→21:29)
[2020-06-15] MEDS: HYDROmorphone 2 MG Tab PO PRN (05:16)
--- NOTE | 2020-06-15 09:08 | CR ---
CHEST: Portable 06/15/2020 at 4:56 AM CLINICAL HISTORY:Chest tube COMPARISON:06/14/2020 FINDINGS: Right chest tube remains in place. Prior right apical pneumothorax is resolved. There is some persistent patchy airspace disease in the right infrahilar region. There is some patchy density at the left lung base which is likely some subsegmental atelectasis. IMPRESSION: Right chest tube remains in place Resolution right pneumothorax Persistent right infrahilar airspace disease Patchy left basal airspace disease likely some subsegmental atelectasis
--- NOTE | 2020-06-15 09:09 | CR ---
CHEST: Portable 06/15/2020 at 7:19 AM CLINICAL HISTORY:Right chest tube removed COMPARISON:Earlier 06/15/2020 FINDINGS: Right chest tube is been removed. There is no pneumothorax. There is patchy airspace disease in the right infrahilar region similar to prior study. There is minimal patchy airspace disease in left lung base similar to prior study. IMPRESSION: Right chest tube is been removed No recurrence in pneumothorax
[2020-06-15] MEDS: Levothyroxine 100 MCG Tab PO SCH (09:48)
[2020-06-15] MEDS: Docusate Sodium 100 MG Cap PO SCH ×2 (09:48→21:28)
[2020-06-15] MEDS: Bisacodyl 5 MG Tab PO SCH ×2 (09:48→21:29)
[2020-06-15] MEDS: valACYclovir 1,000 MG Tab PO SCH (09:48)
[2020-06-15] MEDS: Rosuvastatin 10 MG Tab PO SCH (17:41)
[2020-06-15] MEDS: Pantoprazole 40 MG Tab.CR PO SCH (17:42)
[2020-06-16] MEDS: Acetaminophen 500 MG Tab PO SCH ×2 (00:37→06:49)
[2020-06-16] MEDS: Ibuprofen 600 MG Tab PO SCH ×2 (03:16→08:55)
--- NOTE | 2020-06-16 05:36 | CRLCR ---
INDICATION: Chest tube removal TECHNIQUE: Chest 2 views. COMPARISON: 06/15/2020 FINDINGS: Cardiovascular and mediastinum: Heart size and vasculature are normal in caliber and appearance. Mediastinum is within normal limits. Lungs and pleural spaces: Right midlung opacity increased compared to prior study. No sign of pleural effusion. No pneumothorax. Bones and soft tissues: No significant findings. IMPRESSION: Right midlung opacity increased compared to 06/15/2020. Dictated by Sami Mckeon MD @ Jun 16 2020 5:32AM Signed by Dr. Sami Mckeon @ Jun 16 2020 5:33AM
[2020-06-16] MEDS: Levothyroxine 100 MCG Tab PO SCH (08:55)
[2020-06-16] MEDS: valACYclovir 1,000 MG Tab PO SCH (08:55)
--- NOTE | 2020-06-16 09:06 | DISCH ---
ADMISSION DIAGNOSIS: Nodule, right lower lobe of lung. DISCHARGE DIAGNOSES: 1. Flexible bronchoscopy. 2. Right thoracoscopy with resection of superior segment of the right lower lobe for nodule segment in the right lower lobe (low-grade carcinoid tumor per frozen section). Date of procedure: 06/11/2020. Surgeon: Abdoulaye Car MD. HISTORY: Sami Daugherty is a 44-year-old male with a nodule noted on his right lower lobe of his lung. After preoperative evaluation, discussion of possible risks and possible complications, he wished to proceed with surgical procedure. HOSPITAL COURSE: Sami had his surgery on 06/11/2020. He had no operative complications. On postop day 1, pain was controlled. His oxygen levels remained within normal limits. He was up ambulating. The epidural catheter was removed on 06/13/2020. Started on a full liquid diet. Alicia catheter discontinued on 06/14/2020. Regular diet. He was able to shower. On 06/15, chest tube was removed. Chest x-ray day of discharge showed right midlung opacity increased compared to 06/15/2020. On 06/16/2020, he was able to be discharged to home. Pain was controlled with Tylenol and ibuprofen. Vital signs were stable. He did have a bowel movement. He was able to be discharged to home with no complications. PHYSICAL EXAMINATION: GENERAL: Sami Daugherty is a 44-year-old male. VITAL SIGNS: Height 5 feet 10.87 inches, weight is 204 pounds. TPR at 0300, 96.8, 76, 18, blood pressure 110/71. HEENT: Negative. NECK: Supple. HEART: Regular rate and rhythm. LUNGS: Clear. Right dressing remains intact. This will be removed prior to discharge. There remains to be some decreased breath sounds or crackling in the right mid lung, but good air exchange. EXTREMITIES: Without peripheral edema. DISPOSITION: Discharged to home. CONDITION: Stable and improving. FOLLOWUP APPOINTMENT: With Abdoulaye Car MD, on 06/20/2020 at 2:15 a.m. He is to come at 1:45 p.m. for chest x-ray PA and lateral. MEDICATIONS: Tylenol Extra Strength 1000 mg every 6 hours, ibuprofen 800 mg every 6 hours p.r.n. pain, Crestor 20 mg p.o. daily, Valtrex 500 mg p.o. daily, Zofran ODT 4 mg every 4 hours p.r.n. nausea, loratadine/pseudoephedrine 1 tablet daily p.r.n. congestion, levothyroxine 225 mcg p.o. daily. DIET: Regular diet as tolerated. Drink 8 to 10 glasses of water a day. ACTIVITY: No lifting greater than 10 pounds for 6 weeks. Walk at least 6 times inside your home. Driving: Do not drive for 1 week. May shower. Keep operative site clean and dry. Change dressing over chest tube site once daily. Notify provider if any fever, increased pain, drainage, nausea, or vomiting. SPECIAL INSTRUCTION: Use incentive spirometer 10 times every hour while awake for 1 week. /[id number]
--- NOTE | 2020-06-18 07:23 | PN ---
DATE OF SERVICE: 06/14/2020 The patient has been afebrile with stable vital signs. He is still having a little bit of issues with pain control even with PASTER OPERATOR going on today oral with scheduled Tylenol. The chest tube output was 250 mL, so we will for another day, but most likely we will get the chest tube out tomorrow. Otherwise, he is moving up to a regular diet. Abdoulaye Car MD /[id number]
--- NOTE | 2020-06-18 07:29 | PN ---
DATE OF SERVICE: 06/15/2020 The patient has been afebrile with stable vital signs. Pain control is still a little bit marginal, but we did pull the chest tube this morning and he had only around 125 mL out in the last 24 hours. Subsequent chest x-ray is pending repeat a chest x-ray tomorrow. If he continues to do well, we will let him be discharged home. We will address the pathology report and any need for additional operative procedure based on the final report when it becomes available. Otherwise, he will likely be discharged home tomorrow with followup with Dr. Car this coming June 20. Abdoulaye Car MD /[id number]
--- NOTE | 2020-06-24 10:46 | OR ---
DATE OF PROCEDURE: 06/11/2020 SURGEON: Abdoulaye Car MD PREOPERATIVE DIAGNOSIS: Right lower lobe mass. 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 OPERATIVE PROCEDURES: 1. Flexible bronchoscopy (47829). 2. Right thoracoscopy with resection of superior segment of right lower lobe (55715). ANESTHESIA: General plus epidural. JACK SETTER: Mary Treadwell PA-C INDICATIONS FOR PROCEDURE: This is a 44-year-old male presenting with a nodule involving the superior segment of the right lower lobe. His family history includes multiple occasions where nodules which were thought to be benign or appropriate to follow were subsequently found to be malignant. This is the situation we are looking at this point, and the patient wishes to proceed with resection of this, even though a standard decision-making might lead one to continue to follow this lesion. Potential risks of the procedure including bleeding, infection, injury to underlying viscera, possible local or distant recurrence of malignancy might be encountered were all gone over, and the patient wishes to proceed. DETAILS OF PROCEDURE: The patient was taken to the operating room and placed in a supine position. After general endotracheal anesthesia was induced, initially a flexible bronchoscope was passed through the endotracheal tube, and a general tracheobronchial examination was undertaken. There were no significant secretions and no additional masses or other pathology identified. Scope was withdrawn and that procedure was then concluded. A double-lumen endotracheal tube was then placed along with arterial line and a Alicia catheter, and the patient was placed in a left lateral decubitus position. In the mid axillary line, a transverse incision was made over the 10th interspace, and the left pleural space entered with an Optiview trocar, and pleural space was inflated to 7 mmHg pressure with CO2. Three additional trocars were then placed across the somewhat more superior chest wall. The patient had had a preoperative needle localization of the area overlying the lesion with the needle being placed more or less directly adjacent to the lesion where this needle had pulled back with development of the pneumothorax, but the point where the needle came into the lung was well identified as a small area of tear and some blood present, and this as expected was in the posterior aspect of the midportion of the superior segment of the right lower lobe. General examination revealed no left pleural fluid and there was no obvious lymphadenopathy or other pathology present. At this point, given the location of the mass, decision was made to proceed with superior segmentectomy of the lung tissue initially anteriorly and then posteriorly posterior to the hilum of the upper lobe was divided with MASSIEL margot. Dissection was then continued such that the grouping of the superior segmental bronchus artery and vein were all identified, and these were then divided with MASSIEL stapler as well, and a specimen was placed in a specimen bag and sent for frozen section examination. The 6 mm to 7 mm mass, which was seen on CT scan was easily palpable within the specimen and corresponded quite precisely with where one would expect it to be based on the preoperative needle localization and general appearance on the CAT scan. Frozen section was suggestive of a typical carcinoid, i.e., a low-grade carcinoid tumor with there being no mitotic figures seen on the frozen section slides that were examined intraoperatively. Given the small size of this and peripheral nature, we decided at this point to not proceed with further dissection knowing that the pathology report may change resulting in need for secondary operation. In a typical carcinoid, we typically would recommend a hilar mediastinal node sampling, but given the small size, quite low-grade appearance on frozen section, i.e., no mitotic figures and some uncertainty with regard to the final pathology, we opted at this point not to proceed with further dissection but wait for the permanent sections. At this point, no further problems were noted. A 36-Chinese right-angled chest tube was placed through the midaxillary line trocar site, and the remaining trocars were deflated as the lung was reinflated as well. No other leaks or other problems were noted. The chest tube was sutured to skin with some 2-0 Ethibond stitch. The fascia at the other 12 mm site was closed with 0 Vicryl stitch at the fascial level and the skin at each incision with 4-0 Vicryl skin stitch. Dressing was applied. The patient was taken to the recovery room in satisfactory condition. Physician assistant elementary teacher, Mary Treadwell PA-C, played an essential role in assisting in this case, helping to position the patient, retract structures as needed, as well as suturing and cutting sutures when indicated. Her presence improved patient safety and decreased operative time. Abdoulaye Car MD /[id number]
== END 2020-06-16 09:30 | disposition home or self-care (01) | DRG 165 ==
LOC: JP.SDSSCHI 07:04 → JP.SDS 07:04 → EDSTATUS 09:15 → JP.ICU 13:30 → JP.MS 06-13 21:48
PROVIDERS: ADMIT Surgery; ATTEND Surgery
PROC: 0BBF4ZZ Excision of Right Lower Lung Lobe, Percutaneous Endoscopic Approach (ICD-10-PCS; principal; 2020-06-11)
PROC: 0W9940Z Drainage of Right Pleural Cavity with Drainage Device, Percutaneous Endoscopic Approach (ICD-10-PCS; 2020-06-11)
PROC: 0BJ08ZZ Inspection of Tracheobronchial Tree, Via Natural or Artificial Opening Endoscopic (ICD-10-PCS; 2020-06-11)
DX: D3A.090 Benign carcinoid tumor of the bronchus and lung (principal); R73.9 Hyperglycemia, unspecified; E03.9 Hypothyroidism, unspecified; E78.5 Hyperlipidemia, unspecified; F17.200 Nicotine dependence, unspecified, uncomplicated; K21.9 Gastro-esophageal reflux disease without esophagitis; Z90.49 Acquired absence of other specified parts of digestive tract
CPT/HCPCS: 36415; 71045; 71045-26; 71046; 77012; 77012-26; 80048; 82803; 83735; 84100; 84443; 85027; 86850; 86900; 86901; 86920; 86922; 88307; 94060; 94640; 94762; A9270-GY; C9113; J0330; J0690; J1100; J1170; J1200; J1644; J2001; J2250; J2310; J2405; J2704; J2710; J3010; J3475; J3490; J7030; J7050; J7120; J7121

== ENCOUNTER 2021-04-01 07:10 | Day surgery (SDC) | payer MEDICAID ==
[~2021-04-01 07:10] MED LIST changes: -Acetaminophen 500 MG Tab PO ONE; -Albuterol 0.083% 2.5 MG/3 ML Neb Soln NEB ONE; +Bupivacaine 0.5% 30 ML SDV ONE; -Bupivacaine 0.5%/EPINEPHrine 1:200,000 50 ML MDV ONE; +Nozin Nasal Sanitizer NASBOTH ONE
[2021-04-01] MEDS ORDERED: Propofol 200 MG/20 ML SDV ONE (07:32)
[2021-04-01] MEDS ORDERED: Midazolam 1 MG/ML 2 ML SDV ONE (07:32)
[2021-04-01] MEDS ORDERED: fentaNYL 250 MCG/5 ML SDV ONE (07:33)
[2021-04-01] MEDS ORDERED: Dexamethasone 4 MG/ML SDV ONE (07:34)
[2021-04-01] MEDS ORDERED: Ondansetron 4 MG/2 ML SDV ONE (07:34)
[2021-04-01] MEDS ORDERED: Ketorolac 30 MG/ML SDV ONE (07:34)
[2021-04-01] MEDS ORDERED: Succinylcholine 200 MG/10 ML MDV ONE (07:45)
[2021-04-01] MEDS ORDERED: Lactated Ringers 1,000 ML IV SCH (07:45)
[2021-04-01] MEDS ORDERED: Rocuronium 50 MG/5 ML Vial ONE (07:45)
[2021-04-01] MEDS ORDERED: Nozin Nasal Sanitizer NASBOTH ONE (08:04)
[2021-04-01] MEDS ORDERED: ceFAZolin 2 GM in Premix Bag 1 BAG IV ONE (08:30)
[2021-04-01] MEDS ORDERED: fentaNYL 100 MCG/2 ML SDV ONE (08:38)
[2021-04-01] MEDS ORDERED: Bupivacaine 0.5% 30 ML SDV INJECT ONE ×2 (09:07→09:45)
[2021-04-01] MEDS ORDERED: Glycopyrrolate 0.2 MG/ML 5 ML MDV ONE (09:18)
[2021-04-01] MEDS ORDERED: Neostigmine Methylsulfate 1 MG/ML 5 ML Syringe ONE (09:18)
[2021-04-01] MEDS ORDERED: Lactated Ringers 1,000 ML ONE (09:19)
[2021-04-01] MEDS ORDERED: HYDROmorphone 2 MG Tab PO PRN (10:43)
--- NOTE | 2021-04-08 05:16 | OR ---
DATE OF PROCEDURE: 04/01/2021 SURGEON: Ricardo Broderick MD PREOPERATIVE DIAGNOSIS: Chondral defect, lateral femoral condyle, left knee. POSTOPERATIVE DIAGNOSES: 1. Full-thickness chondral defect, lateral femoral condyle, left knee, measuring 15 x 8 mm. 2. Grade 1 and 2 chondromalacia patella. PROCEDURES: 1. Diagnostic arthroscopy, left knee. 2. Open osteochondral autograft, mosaicplasty, left knee. SUSTAINABILITY PROJECT COORDINATOR: MELIDA Zendejas ANESTHESIA: General. INDICATION: This is a 45-year-old gentleman with a history of left knee pain with catching and locking. Examination and imaging are consistent with a full-thickness cartilage defect in lateral femoral condyle which appears well contained in approximately 10 mm in diameter. He thought to be a candidate for an osteochondral autografting and has taken to the operating room today for planned procedure. Risks, benefits, potential and complications of the procedure were discussed. Surgical 1st materials assistant services of [employer] were utilized for retraction, exposure, manipulation and positioning of the leg during implantation and harvesting of the grafts. DESCRIPTION OF PROCEDURE: After adequate anesthesia was obtained, the patient was placed in supine with a tourniquet about the left upper thigh. Left leg was prepped and draped in a sterile fashion. Leg was exsanguinated and tourniquet inflated to 300 mmHg pressure. Standard inferior medial lateral and portals were established. The scope was introduced and the patellofemoral joint was inspected. This revealed some grade 2 changes of the patella with intact trochlea. Medial femoral condyle showed loose chondral fragment which was removed with a shaver. Meniscus and articular surfaces were intact. ACL and PCL were intact. Lateral compartment showed a full-thickness cartilage defect with loose chondral flaps around the periphery. Several small loose bodies from this defect were present, which were removed with the shaver. The margins of the defect were debrided with a shaver and a curette. The defect was very well contained, did not have a circular shaped defect, but more of a snowman shape with a larger defect anterior and a smaller defect posteriorly. Spinal needle was utilized to estimate angle needed to obtain perpendicular position for drilling and implantation of grafts. This could not be easily obtained and required a difficult angle through the patellar tendon. A decision was made to proceed with an arthrotomy. Knee was drained. The scope withdrawn. Lateral portal was extended from the level to the tibial tuberosity to the superior pole of the patella. This carried down through the subcutaneous tissues, and a lateral parapatellar approach was utilized. This revealed the defect which was measured at approximately 8 mm in width at it's widest point and 15 mm in total length. The posterior portion was approximately 6 mm in width. The 8 mm drill was used to core the larger of the defect sites and the bone removed was saved for grafting of the harvest site. An 8 mm harvester was then utilized in the superior aspect of the trochlear groove off the main weightbearing area. This was harvested to a depth of 15 mm corresponding to the depth of the core in the defect. The graft was then maneuvered into position and tapped flush with the kashia cartilage. A 6 mm reamer was then used in the posterior defect again saving the bone reamings. 6 mm osteochondral graft was taken from the junction of the main weightbearing portion of the condyle and the trochlear groove. This was position and maneuvered into the defect and tapped flush. A 15 scalpel blade was used to lightly debride the overlapping edges to remove any chondral flaps. The harvested bone was placed into the larger of the harvest sites. The knee was irrigated and closed with 0 Vicryl in a running fashion and a capsule with 2-0 Vicryl and a running 3-0 Monocryl. Steri-Strips were applied. Sterile dressing was then placed. The patient tolerated the procedure well. There were no complications and taken from the operating room in stable condition. Ricardo Broderick MD /[id number] [place]
== END 2021-04-01 13:20 | disposition home or self-care (01) ==
LOC: JP.SDS 07:10
PROVIDERS: ATTEND Specialist
DX: M24.19 Other articular cartilage disorders, other specified site (principal); M22.42 Chondromalacia patellae, left knee; E03.9 Hypothyroidism, unspecified; F17.200 Nicotine dependence, unspecified, uncomplicated; Z88.5 Allergy status to narcotic agent; Z98.890 Other specified postprocedural states
CPT/HCPCS: 36415; 80053; 85025; A9270-GY; J0330; J0690; J1100; J1885; J2250; J2405; J2704; J2710; J3010; J3490; J7120

== ENCOUNTER 2021-08-19 08:52 | Day surgery (SDC) | payer MEDICAID ==
[2021-08-19] MEDS ORDERED: Nozin Nasal Sanitizer NASBOTH ONE (09:30)
[2021-08-19] MEDS ORDERED: Lactated Ringers 1,000 ML IV SCH (10:00)
[2021-08-19] MEDS ORDERED: fentaNYL 250 MCG/5 ML SDV ONE (10:09)
[2021-08-19] MEDS ORDERED: ceFAZolin 1 GM in Premix Bag 1 BAG IV ONE (10:30)
[2021-08-19] MEDS ORDERED: ceFAZolin 1 GM in Sodium Chloride 0.9% 50 ML IV ONE (10:30)
[2021-08-19] MEDS ORDERED: Bupivacaine 0.5% 50 ML MDV ONE (10:45)
[2021-08-19] MEDS ORDERED: Midazolam 1 MG/ML 2 ML SDV ONE (11:04)
[2021-08-19] MEDS ORDERED: Propofol 200 MG/20 ML SDV ONE ×2 (11:04→11:32)
[2021-08-19] MEDS ORDERED: Dexamethasone 4 MG/ML SDV ONE (11:04)
[2021-08-19] MEDS ORDERED: Ondansetron 4 MG/2 ML SDV ONE (11:04)
[2021-08-19] MEDS ORDERED: Ketorolac 30 MG/ML SDV ONE (12:11)
== END 2021-08-19 15:00 | disposition home or self-care (01) ==
LOC: JP.SDS 08:52
PROVIDERS: ATTEND Specialist
DX: M94.262 Chondromalacia, left knee (principal); E03.9 Hypothyroidism, unspecified; K21.9 Gastro-esophageal reflux disease without esophagitis; E78.00 Pure hypercholesterolemia, unspecified
CPT/HCPCS: 29879; 36415; 80048; 85027; A9270; J0690; J1100; J1885; J2250; J2405; J2704; J3010; J3490; J7120

== ENCOUNTER 2022-04-02 10:43 | Inpatient (IN) | payer MEDICAID ==
[2022-04-02] MEDS ORDERED: Acetaminophen 325 MG Tab PO PRN (11:11)
[2022-04-02] MEDS ORDERED: Ondansetron 4 MG/2 ML SDV IV PRN (11:11)
[2022-04-02] MEDS ORDERED: Sodium Chloride 0.9% 10 ML Syringe FLUSH PRN ×2 (11:11→11:31)
[2022-04-02] MEDS ORDERED: HYDROmorphone 0.5 MG/0.5 ML Syringe IVPUSH PRN (11:15)
[2022-04-02] MEDS ORDERED: Iopamidol 612 MG/ML 100 ML Bottle IV PRN (11:31)
[2022-04-02] MEDS ORDERED: Sodium Chloride 0.9% 50 ML IV ONE (11:31)
[2022-04-02 11:54] LABS: ESTIMATED GFR 83 mL/min (>60)
[2022-04-02] MEDS ORDERED: Loratadine 10 MG Tab PO PRN (12:54)
[2022-04-02] MEDS: Enoxaparin 40 MG/0.4 ML Syringe SUBCUT SCH (12:59)
[2022-04-02] MEDS: Pantoprazole 40 MG Vial IVPUSH SCH (12:59)
[2022-04-02] MEDS: Levothyroxine 25 MCG Tab PO SCH (14:54)
[2022-04-02] MEDS: Levothyroxine 100 MCG Tab PO SCH (14:55)
[2022-04-02] MEDS: valACYclovir 1,000 MG Tab PO SCH (14:55)
[2022-04-02] MEDS: HYDROmorphone 0.5 MG/0.5 ML Syringe IVPUSH PRN ×2 (17:18→20:45)
[2022-04-02] MEDS: Sodium Chloride 0.9% 1,000 ML IV SCH (20:48)
[2022-04-03] MEDS: Sodium Chloride 0.9% 1,000 ML IV SCH (04:55)
[2022-04-03 05:23] LABS: ESTIMATED GFR 93 mL/min (>60)
[2022-04-03] MEDS: Levothyroxine 100 MCG Tab PO SCH (08:54)
[2022-04-03] MEDS: valACYclovir 1,000 MG Tab PO SCH (08:54)
[2022-04-03] MEDS: Levothyroxine 25 MCG Tab PO SCH (08:54)
[2022-04-03] MEDS: Pantoprazole 40 MG Vial IVPUSH SCH (11:46)
[2022-04-03] MEDS: Docusate Sodium 100 MG Cap PO SCH ×2 (11:46→20:58)
[2022-04-03] MEDS: Enoxaparin 40 MG/0.4 ML Syringe SUBCUT SCH (11:46)
[2022-04-04 05:01] LABS: ESTIMATED GFR 93 mL/min (>60)
[2022-04-04] MEDS: Docusate Sodium 100 MG Cap PO SCH (08:06)
[2022-04-04] MEDS: valACYclovir 1,000 MG Tab PO SCH (08:10)
[2022-04-04] MEDS: Levothyroxine 25 MCG Tab PO SCH (08:11)
[2022-04-04] MEDS: Levothyroxine 100 MCG Tab PO SCH (08:11)
[2022-04-04] MEDS ORDERED: Pantoprazole 40 MG Tab.CR PO SCH (09:00)
== END 2022-04-04 11:00 | disposition home or self-care (01) | DRG 440 ==
LOC: JP.ICU 10:43
PROVIDERS: ADMIT Hospitalist; ATTEND Hospitalist
DX: K85.90 Acute pancreatitis without necrosis or infection, unspecified (principal); E86.0 Dehydration; E03.9 Hypothyroidism, unspecified; E78.00 Pure hypercholesterolemia, unspecified; F41.9 Anxiety disorder, unspecified; K21.9 Gastro-esophageal reflux disease without esophagitis; Z20.822 Contact with and (suspected) exposure to COVID-19; Z79.899 Other long term (current) drug therapy; Z79.890 Hormone replacement therapy; Z88.5 Allergy status to narcotic agent; Z88.6 Allergy status to analgesic agent; Z87.19 Personal history of other diseases of the digestive system; Z90.2 Acquired absence of lung [part of]; Z90.49 Acquired absence of other specified parts of digestive tract; Z98.52 Vasectomy status; Z90.89 Acquired absence of other organs; Z98.890 Other specified postprocedural states; Z85.118 Personal history of other malignant neoplasm of bronchus and lung
CPT/HCPCS: 36415; 74177; 74177-26; 76705; 76705-26; 80053; 83690; 85025; A9270-GY; C9113; J1170; J1650; J3490; J7030; Q9967; U0002

== ENCOUNTER 2022-05-21 05:26 | Inpatient (IN) | payer MEDICAID ==
[2022-05-21] MEDS ORDERED: Lactated Ringers 1,000 ML IV SCH (06:00)
[2022-05-21 06:13] LABS: ESTIMATED GFR 83 mL/min (>60)
[2022-05-21] MEDS: Nozin Nasal Sanitizer NASBOTH SCH ×3 (06:26→23:02)
[2022-05-21] MEDS ORDERED: Bupivacaine 0.5% 50 ML MDV ONE (06:48)
[2022-05-21] MEDS ORDERED: ceFAZolin 2 GM in Sodium Chloride 0.9% 50 ML IV ONE (07:00)
[2022-05-21] MEDS ORDERED: fentaNYL 100 MCG/2 ML SDV ONE ×2 (07:18→08:42)
[2022-05-21] MEDS ORDERED: Propofol 200 MG/20 ML SDV ONE ×4 (07:18→09:26)
[2022-05-21] MEDS ORDERED: Midazolam 1 MG/ML 2 ML SDV ONE (07:18)
[2022-05-21] MEDS ORDERED: Magnesium Hydroxide 400 MG/5 ML Susp 30 ML Cup PO PRN (10:06)
[2022-05-21] MEDS: Ketorolac 30 MG/ML SDV IVPUSH SCH ×2 (10:50→18:09)
[2022-05-21] MEDS: Acetaminophen 325 MG Tab PO SCH ×3 (10:51→23:01)
[2022-05-21] MEDS ORDERED: Loratadine 10 MG Tab PO PRN (11:12)
[2022-05-21] MEDS: HYDROmorphone 0.5 MG/0.5 ML Syringe IVPUSH PRN ×3 (12:21→20:53)
[2022-05-21] MEDS: Sodium Chloride 0.9% 1,000 ML IV SCH ×2 (12:28→20:47)
[2022-05-21] MEDS: HYDROmorphone 2 MG Tab PO PRN ×2 (13:57→23:02)
[2022-05-21] MEDS: traMADol 50 MG Tab PO PRN (14:43)
[2022-05-21] MEDS: ceFAZolin 1 GM in Sodium Chloride 0.9% 50 ML IV SCH ×2 (15:39→23:02)
[2022-05-21] MEDS: Docusate Sodium 100 MG Cap PO SCH (20:53)
[2022-05-22] MEDS: HYDROmorphone 0.5 MG/0.5 ML Syringe IVPUSH PRN ×2 (00:48→12:22)
[2022-05-22] MEDS: Ketorolac 30 MG/ML SDV IVPUSH SCH ×3 (02:35→18:01)
[2022-05-22] MEDS: traMADol 50 MG Tab PO PRN ×3 (02:35→20:08)
[2022-05-22] MEDS: Acetaminophen 325 MG Tab PO SCH ×4 (05:29→21:28)
[2022-05-22] MEDS: Docusate Sodium 100 MG Cap PO SCH ×2 (08:30→21:28)
[2022-05-22] MEDS: valACYclovir 1,000 MG Tab PO SCH (08:30)
[2022-05-22] MEDS: Nozin Nasal Sanitizer NASBOTH SCH ×3 (08:30→21:28)
[2022-05-22] MEDS ORDERED: LEVOTHYROXINE SODIUM 200 MCG PO SCH (09:00)
[2022-05-22] MEDS ORDERED: HYDROmorphone 1 MG/ML Syringe IVPUSH PRN (12:33)
[2022-05-22] MEDS: HYDROmorphone 2 MG Tab PO PRN ×2 (13:47→18:01)
[2022-05-23] MEDS: HYDROmorphone 2 MG Tab PO PRN ×4 (01:08→16:08)
[2022-05-23] MEDS: Ketorolac 30 MG/ML SDV IVPUSH SCH (02:11)
[2022-05-23] MEDS: Acetaminophen 325 MG Tab PO SCH ×3 (04:24→15:27)
[2022-05-23] MEDS: traMADol 50 MG Tab PO PRN ×3 (04:25→18:00)
[2022-05-23] MEDS: valACYclovir 1,000 MG Tab PO SCH (09:26)
[2022-05-23] MEDS: Docusate Sodium 100 MG Cap PO SCH (09:26)
[2022-05-23] MEDS: Nozin Nasal Sanitizer NASBOTH SCH (09:38)
== END 2022-05-23 20:20 | disposition home or self-care (01) | DRG 470 ==
LOC: JP.SDS 05:26 → JP.MS 10:07 → JP.SDS 05-22 11:00 → JP.MS 05-22 11:30
PROVIDERS: ADMIT Specialist; ATTEND Specialist
PROC: 0SRD0JZ Replacement of Left Knee Joint with Synthetic Substitute, Open Approach (ICD-10-PCS; principal; 2022-05-21)
DX: M17.12 Unilateral primary osteoarthritis, left knee (principal); M94.20 Chondromalacia, unspecified site
CPT/HCPCS: 36415; 73560-26-LT; 73560-LT; 80053; 85027; 97110-GP; 97112-GP; 97161-GP; 97165-GO; 97530-GP; 97535-GO; 97535-GP; A9270-GY; C1713; C1776; J0690; J1170; J1885; J2250; J2704; J3010; J3490; J7030; J7120

== ENCOUNTER 2022-05-26 09:02 | Emergency (ER) | payer MEDICAID | END 2022-05-26 12:17 | disposition home or self-care (01) | LOC: JP.ED 09:02 | DX: G89.18 Other acute postprocedural pain (principal); F17.210 Nicotine dependence, cigarettes, uncomplicated; Z91.048 Other nonmedicinal substance allergy status; Z88.5 Allergy status to narcotic agent; Z88.6 Allergy status to analgesic agent; Z79.899 Other long term (current) drug therapy | CPT/HCPCS: 93971-26-LT; 93971-LT; 99283 ==

== ENCOUNTER 2022-10-15 07:30 | Day surgery (SDC) | payer MEDICAID ==
[~2022-10-15 07:30] MED LIST changes: -Nozin Nasal Sanitizer NASBOTH ONE
[2022-10-15] MEDS ORDERED: Lactated Ringers 1,000 ML IV SCH (08:00)
[2022-10-15] MEDS ORDERED: Nozin Nasal Sanitizer NASBOTH ONE (08:00)
[2022-10-15 08:23] LABS: ESTIMATED GFR 83 mL/min (>60)
[2022-10-15] MEDS ORDERED: ceFAZolin 2 GM in Premix Bag 1 BAG IV ONE (09:00)
[2022-10-15] MEDS ORDERED: Midazolam 1 MG/ML 2 ML SDV ONE (11:51)
[2022-10-15] MEDS ORDERED: fentaNYL 250 MCG/5 ML SDV ONE (11:51)
[2022-10-15] MEDS ORDERED: Dexamethasone 4 MG/ML SDV ONE (11:52)
[2022-10-15] MEDS ORDERED: Propofol 200 MG/20 ML SDV ONE (11:52)
[2022-10-15] MEDS ORDERED: Ondansetron 4 MG/2 ML SDV ONE (11:52)
[2022-10-15] MEDS ORDERED: Ketorolac 30 MG/ML SDV ONE (12:12)
[2022-10-15] MEDS ORDERED: Lactated Ringers 1,000 ML ONE (12:39)
[2022-10-15] MEDS ORDERED: fentaNYL 100 MCG/2 ML SDV ONE (12:49)
[2022-10-15] MEDS ORDERED: traMADol 50 MG Tab PO PRN (13:45)
== END 2022-10-15 16:12 | disposition home or self-care (01) ==
LOC: JP.SDS 07:30
PROVIDERS: ATTEND Specialist
DX: Z12.11 Encounter for screening for malignant neoplasm of colon (principal); M65.162 Other infective (teno)synovitis, left knee; E03.9 Hypothyroidism, unspecified; E78.5 Hyperlipidemia, unspecified; R73.9 Hyperglycemia, unspecified; A60.00 Herpesviral infection of urogenital system, unspecified; K21.9 Gastro-esophageal reflux disease without esophagitis; F17.210 Nicotine dependence, cigarettes, uncomplicated
CPT/HCPCS: 29875; 36415; 80053; 85025; 85651; 86140; 87070; 87075; 87077; 87186; 87205; A9270; J0690; J1100; J1885; J2250; J2405; J2704; J3010; J3490; J7120

== ENCOUNTER 2022-10-15 20:54 | Emergency (ER) | payer MEDICAID ==
[2022-10-15] MEDS ORDERED: Lidocaine 1% 5 ML VIAL INJECT ONE (21:34)
== END 2022-10-15 22:16 | disposition home or self-care (01) ==
LOC: JP.ED 20:54
DX: L76.22 Postprocedural hemorrhage of skin and subcutaneous tissue following other procedure (principal); E78.00 Pure hypercholesterolemia, unspecified; E03.9 Hypothyroidism, unspecified; Z91.048 Other nonmedicinal substance allergy status; Z88.5 Allergy status to narcotic agent; Z79.899 Other long term (current) drug therapy; Z98.890 Other specified postprocedural states
CPT/HCPCS: 12001; 99283

== ENCOUNTER 2022-11-12 09:23 | Inpatient (IN) | payer MEDICAID ==
[2022-11-12] MEDS: Nozin Nasal Sanitizer NASBOTH SCH ×3 (09:46→21:38)
[2022-11-12 09:48] LABS: HEMATOCRIT 45.9 % (38.4-49.7); MEAN CORPUSCULAR HEMOGLOBIN 29.8 pg (31.6-35.5); MEAN CORPUSCULAR HGB CONC 32.7 g/dL (31.6-35.5); MEAN CORPUSCULAR VOLUME 91.3 fL (81.4-99.0); RED BLOOD CELL COUNT 5.03 M/uL (4.14-5.76); WHITE BLOOD CELL COUNT,WBC 8.5 K/uL (3.2-11.0)
[2022-11-12] MEDS ORDERED: Lactated Ringers 1,000 ML IV SCH (10:00)
[2022-11-12 10:06] LABS: C-REACTIVE PROTEIN 1.21 mg/dL (0.0-0.3); CALCIUM 8.7 mg/dL (8.5-10.1); CREATININE 1.2 mg/dL (0.8-1.3); EST CRCL DRUG DOSING (CG) 81.05 mL/min; POTASSIUM,K 4.2 mmol/L (3.6-5.2)
[2022-11-12] MEDS ORDERED: Tranexamic Acid 1,000 MG in Sodium Chloride 0.9% 50 ML IV ONE ×2 (11:00→15:00)
[2022-11-12] MEDS ORDERED: fentaNYL 100 MCG/2 ML SDV ONE ×4 (12:19→18:32)
[2022-11-12] MEDS ORDERED: Midazolam 1 MG/ML 2 ML SDV ONE ×3 (12:19→16:11)
[2022-11-12] MEDS ORDERED: Propofol 200 MG/20 ML SDV ONE ×5 (12:19→17:05)
[2022-11-12] MEDS ORDERED: Bupivacaine 0.5% 50 ML MDV ONE (13:38)
[2022-11-12] MEDS ORDERED: Glycopyrrolate 0.2 MG/ML 5 ML MDV ONE (15:50)
[2022-11-12] MEDS ORDERED: Lactated Ringers 1,000 ML ONE (17:21)
[2022-11-12] MEDS ORDERED: Ondansetron 4 MG/2 ML SDV IVPUSH PRN (18:15)
[2022-11-12] MEDS: Ketorolac 30 MG/ML SDV IVPUSH PRN (19:15)
[2022-11-12] MEDS: HYDROmorphone 1 MG/ML Syringe IVPUSH PRN ×2 (19:15→20:34)
[2022-11-12] MEDS: traMADol 50 MG Tab PO PRN ×2 (20:37→21:39)
[2022-11-12] MEDS: atorvaSTATin 20 MG Tab PO SCH (21:38)
[2022-11-12] MEDS: Acetaminophen 325 MG Tab PO SCH (23:40)
[2022-11-13] MEDS: HYDROmorphone 1 MG/ML Syringe IVPUSH PRN ×3 (02:15→13:45)
[2022-11-13] MEDS: Acetaminophen 325 MG Tab PO SCH ×5 (02:18→22:30)
[2022-11-13] MEDS: Levothyroxine 100 MCG Tab PO SCH (08:03)
[2022-11-13] MEDS: Loratadine 10 MG Tab PO SCH (08:03)
[2022-11-13] MEDS: Multivitamins with Iron/Calcium/Folic Acid/Minerals Tab PO SCH (08:03)
[2022-11-13] MEDS: Nozin Nasal Sanitizer NASBOTH SCH ×2 (08:03→21:27)
[2022-11-13] MEDS: Levothyroxine 25 MCG Tab PO SCH (08:03)
[2022-11-13] MEDS: Aspirin 325 MG Tab.EC PO SCH ×2 (08:03→21:29)
[2022-11-13] MEDS: Docusate Sodium 100 MG Cap PO SCH ×2 (08:03→21:29)
[2022-11-13] MEDS: valACYclovir 1,000 MG Tab PO SCH (08:04)
[2022-11-13] MEDS ORDERED: LEVOTHYROXINE SODIUM 200 MCG PO SCH (09:00)
[2022-11-13] MEDS: Sodium Chloride 0.9% 1,000 ML IV SCH (12:18)
[2022-11-13] MEDS: traMADol 50 MG Tab PO PRN (18:37)
[2022-11-13] MEDS: atorvaSTATin 20 MG Tab PO SCH (21:29)
[2022-11-13] MEDS: Ketorolac 30 MG/ML SDV IVPUSH PRN (23:44)
[2022-11-14] MEDS: Acetaminophen 325 MG Tab PO SCH ×5 (00:14→23:06)
[2022-11-14] MEDS: traMADol 50 MG Tab PO PRN ×3 (03:59→19:44)
[2022-11-14] MEDS: Levothyroxine 100 MCG Tab PO SCH (07:21)
[2022-11-14] MEDS: Levothyroxine 25 MCG Tab PO SCH (07:21)
[2022-11-14] MEDS: Nozin Nasal Sanitizer NASBOTH SCH ×2 (08:07→21:23)
[2022-11-14] MEDS: Aspirin 325 MG Tab.EC PO SCH ×2 (08:08→21:27)
[2022-11-14] MEDS: Multivitamins with Iron/Calcium/Folic Acid/Minerals Tab PO SCH (08:08)
[2022-11-14] MEDS: Loratadine 10 MG Tab PO SCH (08:08)
[2022-11-14] MEDS: Docusate Sodium 100 MG Cap PO SCH ×2 (08:08→21:26)
[2022-11-14] MEDS: valACYclovir 1,000 MG Tab PO SCH (08:09)
[2022-11-14] MEDS ORDERED: HYDROmorphone 2 MG Tab PO PRN (12:06)
[2022-11-14 15:19] LABS: CREATININE 0.9 mg/dL (0.8-1.3); EST CRCL DRUG DOSING (CG) 108.07 mL/min; VANCOMYCIN TROUGH 10.8 ug/mL (10.0-20.0)
[2022-11-14] MEDS: atorvaSTATin 20 MG Tab PO SCH (21:27)
[2022-11-14] MEDS: Ketorolac 30 MG/ML SDV IVPUSH PRN (22:21)
[2022-11-14] MEDS: Sodium Chloride 0.9% 1,000 ML IV SCH (23:02)
[2022-11-15] MEDS: traMADol 50 MG Tab PO PRN ×5 (03:37→22:22)
[2022-11-15] MEDS: Acetaminophen 325 MG Tab PO SCH ×2 (05:50→11:24)
[2022-11-15] MEDS: Levothyroxine 25 MCG Tab PO SCH (07:44)
[2022-11-15] MEDS: Levothyroxine 100 MCG Tab PO SCH (07:44)
[2022-11-15] MEDS: Ketorolac 30 MG/ML SDV IVPUSH PRN (07:49)
[2022-11-15] MEDS: Docusate Sodium 100 MG Cap PO SCH ×2 (08:47→21:38)
[2022-11-15] MEDS: Loratadine 10 MG Tab PO SCH (08:47)
[2022-11-15] MEDS: Multivitamins with Iron/Calcium/Folic Acid/Minerals Tab PO SCH (08:47)
[2022-11-15] MEDS: Aspirin 325 MG Tab.EC PO SCH ×2 (08:47→21:38)
[2022-11-15] MEDS: Nozin Nasal Sanitizer NASBOTH SCH ×2 (08:47→21:37)
[2022-11-15] MEDS: valACYclovir 1,000 MG Tab PO SCH (08:48)
[2022-11-15] MEDS: Ibuprofen 800 MG Tab PO SCH ×2 (14:24→21:39)
[2022-11-15] MEDS ORDERED: Polyethylene Glycol 3350 Powder 17 GM Packet PO ONE (14:30)
[2022-11-15] MEDS: Acetaminophen 500 MG Tab PO SCH ×2 (15:42→21:40)
[2022-11-15] MEDS ORDERED: Acetaminophen 325 MG Tab PO SCH (16:00)
[2022-11-15] MEDS: atorvaSTATin 20 MG Tab PO SCH (21:38)
[2022-11-16] MEDS: Acetaminophen 500 MG Tab PO SCH ×2 (03:03→10:13)
[2022-11-16] MEDS: traMADol 50 MG Tab PO PRN (05:04)
[2022-11-16] MEDS: Ibuprofen 800 MG Tab PO SCH (05:04)
[2022-11-16] MEDS: Levothyroxine 100 MCG Tab PO SCH (07:27)
[2022-11-16] MEDS: Levothyroxine 25 MCG Tab PO SCH (07:27)
[2022-11-16] MEDS: Nozin Nasal Sanitizer NASBOTH SCH (10:11)
[2022-11-16] MEDS: Multivitamins with Iron/Calcium/Folic Acid/Minerals Tab PO SCH (10:11)
[2022-11-16] MEDS: Aspirin 325 MG Tab.EC PO SCH (10:12)
[2022-11-16] MEDS: valACYclovir 1,000 MG Tab PO SCH (10:12)
[2022-11-16] MEDS: Docusate Sodium 100 MG Cap PO SCH (10:13)
[2022-11-16] MEDS: Loratadine 10 MG Tab PO SCH (10:13)
== END 2022-11-16 10:35 | disposition home or self-care (01) | DRG 468 ==
LOC: JP.SDS 09:23 → JP.MS 18:16 → JP.SDS 11-13 15:27 → JP.MS 11-13 15:27
PROVIDERS: ADMIT Specialist; ATTEND Specialist
PROC: 0SPD0JZ Removal of Synthetic Substitute from Left Knee Joint, Open Approach (ICD-10-PCS; principal; 2022-11-13)
PROC: 0SRD069 Replacement of Left Knee Joint with Oxidized Zirconium on Polyethylene Synthetic Substitute, Cemented, Open Approach (ICD-10-PCS; 2022-11-13)
DX: T84.54XA Infection and inflammatory reaction due to internal left knee prosthesis, initial encounter (principal); M25.462 Effusion, left knee; Y83.8 Other surgical procedures as the cause of abnormal reaction of the patient, or of later complication, without mention of misadventure at the time of the procedure; Z79.899 Other long term (current) drug therapy; Z98.890 Other specified postprocedural states
CPT/HCPCS: 36415; 73560-26-LT; 73560-LT; 80048; 80202; 82565; 85027; 85651; 86140; 87070; 87075; 87205; 97110-GP; 97116-GP; 97140-GP; 97162-GP; 97165-GO; 97530-GP; A9270-GY; C1713; C1751; C1776; J1170; J1885; J2250; J2405; J2704; J3010; J3370; J3490; J7030; J7050; J7120